=== PATIENT | male | born 1950 | race Caucasian/White ===

== ENCOUNTER → 2021-09-04 12:57 | Outpatient (CLI) | payer MEDICARE, SELFPAY ==
--- NOTE | ~2021-09-04 | XR_ITS ---
EXAMINATION: XR lumbar spine 2-3V DATE: 09/04/2021 13:34 INDICATION: Low back pain. TECHNIQUE: 3 views of lumbar spine were obtained. COMPARISON: None. FINDINGS: There is 11 degrees levoscoliosis of thoracolumbar spine. There is 5 mm retrolisthesis of L 3 on L4 and 10 mm anterolisthesis of L5 on S1. There are bilateral L5 pars defects. Vertebral body he ights are normal. There is mildly decreased disc height at T12-L1, L1-L2, L2-L3, and L3-L4 and modera tely decreased disc height at L5-S1. There is multilevel mild to moderate facet joint osteoarthritis. There is severe right hip osteoarthritis and mild left hip osteoarthritis. IMPRESSION: 1. Moderate lumbar spondylosis. 2. Bilateral L5 pars defects with grade 2 anterolisthesis of L5 on S1. 3. Thoracolumbar levoscoliosis. Reviewed, dictated and finalized at location A.
== END ==
DX: M54.50 Low back pain, unspecified (principal); M47.816 Spondylosis without myelopathy or radiculopathy, lumbar region; M43.8X6 Other specified deforming dorsopathies, lumbar region; M43.17 Spondylolisthesis, lumbosacral region; M41.85 Other forms of scoliosis, thoracolumbar region
CPT/HCPCS: 72100